=== PATIENT | male | born 1950 | race Caucasian/White ===

== ENCOUNTER 2020-09-01 15:13 | Inpatient (IN) ==
[2020-09-01] MEDS: POTASSIUM CHLORIDE 10 MEQ PO SCH (16:57)
[2020-09-01] MEDS: *HR* HYDROcodone/Acet 5/325 mg TABLET PO PRN (20:33)
[2020-09-01] MEDS: ursodioL 300 MG CAPSULE PO SCH (20:33)
[2020-09-02 06:55] LABS: Basophils % 0.5 %; Eosinophils # 0.1 K/mcL (0.0-0.6); Eosinophils % 1.7 %; Hematocrit 26.2 % (37.5-50.1); Hemoglobin 8.4 g/dL (12.9-16.9); Immature Granulocytes % 0.5 % (0-4); Lymphocytes # 0.8 K/mcL (0.6-4.6); Lymphocytes % 12.6 %; Mean Corpuscular HGB Conc 32.1 g/dL (31.6-35.5); Mean Corpuscular Hemoglobin 27.5 pg (28.0-33.3); Mean Corpuscular Volume 85.9 fL (83.0-100.0); Mean Platelet Volume 12.5 fL (9.4-12.4); Monocytes # 0.5 K/mcL (0.0-1.3); Monocytes % 8.9 %; Neutrophils # 4.6 K/mcL (1.6-8.9); Platelet Count 133 K/mcL (140-400); Red Blood Count 3.05 M/mcL (4.19-5.50); Segmented Neutrophils % 75.8 %; White Blood Count 6.1 K/mcL (4.3-11.1)
[2020-09-02 07:26] LABS: Calcium 7.8 mg/dL (8.6-10.3); Potassium 3.2 mEq/L (3.5-5.1)
[2020-09-02] MEDS: Cyanocobalamin (B-12) 1,000 MCG TABLET PO SCH (08:15)
[2020-09-02] MEDS: ursodioL 300 MG CAPSULE PO SCH ×2 (08:16→20:23)
[2020-09-02] MEDS: *HR* HYDROcodone/Acet 5/325 mg TABLET PO PRN ×3 (08:18→20:22)
[2020-09-02] MEDS ORDERED: GREEN TEA EXTRACT MC SCH (09:00)
[2020-09-02] MEDS: POTASSIUM CHLORIDE 10 MEQ PO SCH (17:13)
[2020-09-03] MEDS: *HR* HYDROcodone/Acet 5/325 mg TABLET PO PRN ×5 (03:12→23:43)
[2020-09-03] MEDS: *HR* Enoxaparin 30 MG/0.3 ML SYRINGE SQ SCH (05:07)
[2020-09-03 08:11] LABS: Calcium 7.8 mg/dL (8.6-10.3); Magnesium 1.5 mg/dL (1.6-2.6); Potassium 3.4 mEq/L (3.5-5.1)
[2020-09-03] MEDS: Cyanocobalamin (B-12) 1,000 MCG TABLET PO SCH (09:22)
[2020-09-03] MEDS: ursodioL 300 MG CAPSULE PO SCH ×2 (09:22→19:39)
[2020-09-03] MEDS: Ondansetron ODT 4 MG TAB.RAPDIS PO PRN (15:08)
[2020-09-03] MEDS: POTASSIUM CHLORIDE 10 MEQ PO SCH (16:56)
[2020-09-04] MEDS: *HR* HYDROcodone/Acet 5/325 mg TABLET PO PRN ×4 (03:46→19:59)
[2020-09-04] MEDS: *HR* Enoxaparin 30 MG/0.3 ML SYRINGE SQ SCH (05:31)
[2020-09-04] MEDS: Cyanocobalamin (B-12) 1,000 MCG TABLET PO SCH (08:39)
[2020-09-04] MEDS: ursodioL 300 MG CAPSULE PO SCH ×2 (08:39→20:41)
[2020-09-04] MEDS: Ondansetron ODT 4 MG TAB.RAPDIS PO PRN (15:13)
[2020-09-04] MEDS: POTASSIUM CHLORIDE 10 MEQ PO SCH (17:37)
[2020-09-05] MEDS: Ondansetron ODT 4 MG TAB.RAPDIS PO PRN (04:06)
[2020-09-05] MEDS: *HR* HYDROcodone/Acet 5/325 mg TABLET PO PRN ×5 (04:07→21:24)
[2020-09-05] MEDS: *HR* Enoxaparin 30 MG/0.3 ML SYRINGE SQ SCH (05:33)
[2020-09-05 06:34] LABS: Hematocrit 28.4 % (37.5-50.1); Hemoglobin 8.9 g/dL (12.9-16.9); Mean Corpuscular HGB Conc 31.3 g/dL (31.6-35.5); Mean Corpuscular Hemoglobin 27.3 pg (28.0-33.3); Mean Corpuscular Volume 87.1 fL (83.0-100.0); Mean Platelet Volume 11.9 fL (9.4-12.4); Platelet Count 184 K/mcL (140-400); Red Blood Count 3.26 M/mcL (4.19-5.50); Red Cell Distribution Width 15.2 % (11.5-14.5); White Blood Count 6.8 K/mcL (4.3-11.1)
[2020-09-05 06:54] LABS: Calcium 8.2 mg/dL (8.6-10.3); Potassium 3.8 mEq/L (3.5-5.1)
[2020-09-05] MEDS: Cyanocobalamin (B-12) 1,000 MCG TABLET PO SCH (08:28)
[2020-09-05] MEDS: ursodioL 300 MG CAPSULE PO SCH ×2 (08:29→21:24)
[2020-09-05] MEDS: POTASSIUM CHLORIDE 10 MEQ PO SCH (17:02)
[2020-09-06] MEDS: *HR* Enoxaparin 30 MG/0.3 ML SYRINGE SQ SCH (06:13)
[2020-09-06 07:48] LABS: Calcium 8.3 mg/dL (8.6-10.3); Magnesium 1.6 mg/dL (1.6-2.6); Potassium 3.7 mEq/L (3.5-5.1)
[2020-09-06] MEDS: *HR* HYDROcodone/Acet 5/325 mg TABLET PO PRN ×3 (09:37→21:44)
[2020-09-06] MEDS: Cyanocobalamin (B-12) 1,000 MCG TABLET PO SCH (09:38)
[2020-09-06] MEDS: ursodioL 300 MG CAPSULE PO SCH ×2 (09:53→21:44)
[2020-09-06] MEDS: POTASSIUM CHLORIDE 10 MEQ PO SCH (17:10)
[2020-09-06] MEDS: Ondansetron ODT 4 MG TAB.RAPDIS PO PRN (21:47)
[2020-09-07] MEDS: *HR* Enoxaparin 30 MG/0.3 ML SYRINGE SQ SCH (06:18)
[2020-09-07] MEDS: *HR* HYDROcodone/Acet 5/325 mg TABLET PO PRN ×3 (09:44→20:45)
[2020-09-07] MEDS: ursodioL 300 MG CAPSULE PO SCH ×2 (09:44→20:45)
[2020-09-07] MEDS: Cyanocobalamin (B-12) 1,000 MCG TABLET PO SCH (09:45)
[2020-09-07] MEDS: Ondansetron ODT 4 MG TAB.RAPDIS PO PRN (14:37)
[2020-09-07] MEDS: POTASSIUM CHLORIDE 10 MEQ PO SCH (17:41)
[2020-09-08] MEDS: *HR* Enoxaparin 30 MG/0.3 ML SYRINGE SQ SCH (06:25)
[2020-09-08] MEDS: ursodioL 300 MG CAPSULE PO SCH ×2 (08:46→20:24)
[2020-09-08] MEDS: Cyanocobalamin (B-12) 1,000 MCG TABLET PO SCH (08:46)
[2020-09-08] MEDS: *HR* HYDROcodone/Acet 5/325 mg TABLET PO PRN ×3 (08:46→20:31)
[2020-09-08] MEDS: POTASSIUM CHLORIDE 10 MEQ PO SCH (15:49)
[2020-09-09] MEDS: *HR* HYDROcodone/Acet 5/325 mg TABLET PO PRN (05:28)
[2020-09-09] MEDS: *HR* Enoxaparin 30 MG/0.3 ML SYRINGE SQ SCH (05:28)
[2020-09-09 06:39] VITALS: BP 110/68
[2020-09-09] MEDS: Cyanocobalamin (B-12) 1,000 MCG TABLET PO SCH (08:44)
[2020-09-09] MEDS: ursodioL 300 MG CAPSULE PO SCH (08:44)
== END 2020-09-09 11:55 | disposition home health service (06) | DRG 560 ==
LOC: INPPIK 16:02
PROVIDERS: ADMIT Family Medicine; ATTEND Family Medicine